=== PATIENT | male | born 1980 | race African-American/Black ===

== ENCOUNTER 2019-02-20 22:57 | Inpatient (IN) | payer MEDICAID ==
[2019-02-20] MEDS ORDERED: Ondansetron 4 MG/2 ML SDV IVPUSH ONE (23:18)
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
[2019-02-20] MEDS ORDERED: Sodium Chloride 0.9% 1,000 ML IV SCH (23:30)
--- NOTE | 2019-02-20 23:46 | CR ---
INDICATION: Abdominal pain, shortness of breath TECHNIQUE: Chest radiograph 2 views COMPARISON: None FINDINGS: Mediastinum: The mediastinum is normal in appearance. The heart silhouette is normal in size and morphology. Lung: Both lungs are unremarkable in appearance. No sign of pleural effusion seen. No pneumothorax is identified. Musculoskeletal: Unremarkable for age. IMPRESSION: 1. No acute cardiopulmonary disease is seen. Dictated by: Kiran Costa MD @ 02/20/2019 23:45:27 (Electronically Signed)
[2019-02-20 23:51] LABS: CHLORIDE,CL 99 mmol/L (98-107); SODIUM,NA 136 mmol/L (136-148)
--- NOTE | 2019-02-21 00:08 | CT ---
INDICATION: Abdominal pain TECHNIQUE: CT Abdomen and pelvis without i.v. contrast. Coronal and sagittal reformats were obtained. COMPARISON: 07/01/2015 FINDINGS: Lower chest: Unremarkable. Liver: In the posterior dome of the liver, there is a stable 1 cm hypodensity. Spleen: Unremarkable. Pancreas: Unremarkable. Gallbladder: Previous cholecystectomy noted without significant intra- or extrahepatic biliary ductal dilatation seen. Kidney: There is a punctate less than 1 mm stone present in the upper pole and lower pole of the right kidney. Adrenal: Unremarkable. Bowel: The previously noted right periumbilical hernia now contains herniated small bowel loops causing high-grade obstruction of the small bowel. A small bowel anastomotic staple line is present in the left flank. The appendix is normal in appearance and size. Vascular: Unremarkable. Lymph: Unremarkable. Peritoneum: Unremarkable. No pneumoperitoneum is seen. No significant ascites is noted. Pelvis: Unremarkable. Soft tissue: Unremarkable. Bone: Severe degenerative disc narrowing of L4-5 is noted without significant interval change. IMPRESSION: 1. The previously noted right periumbilical hernia now contains herniated small bowel loops causing high-grade obstruction of the small bowel. The small bowel proximal to the hernia is dilated measuring up to 4.3 cm. Dictated by Kiran Costa MD @ 02/20/2019 11:57:15 PM Please note that all CT scans at this facility use dose modulation, iterative reconstruction, and/or weight-based dosing when appropriate to reduce radiation dose to as low as reasonably achievable. Dictated by: Kiran Costa MD @ 02/21/2019 00:05:41 (Electronically Signed)
[2019-02-21] MEDS ORDERED: Morphine 4 MG/ML Syringe IVPUSH ONE ×2 (00:21→02:07)
[2019-02-21] MEDS ORDERED: cefOXitin 2 GM in Premix Bag 1 BAG IV ONE (01:44)
[2019-02-21] MEDS: Lactated Ringers 1,000 ML IV SCH ×2 (02:00→17:20)
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
--- NOTE | 2019-02-21 02:26 | PCM.SN ---
- Free Text/Narrative Note: pt seen, chart reviewed; h/p dictated, [id number]; hi grade obstruction w incarcerated hernia, would benefit from timely surgery; pt has abd pain and n/v , and ct read hi grade, proceed with surgery; offered pt 2nd opinion, proceed w xlap, poss bowel resection, or possible ostomy or possible hernia repair, possible w mesh; pt concur and proceed;
[2019-02-21] MEDS ORDERED: Rocuronium 100 MG/10 ML Syringe ONE (03:02)
[2019-02-21] MEDS ORDERED: Propofol 200 MG/20 ML SDV ONE (03:02)
[2019-02-21] MEDS ORDERED: fentaNYL 250 MCG/5 ML SDV ONE (03:02)
[2019-02-21] MEDS ORDERED: Midazolam 1 MG/ML 2 ML SDV ONE (03:02)
[2019-02-21] MEDS ORDERED: Morphine 2 MG/ML Syringe IVPUSH ONE (04:52)
[2019-02-21] MEDS ORDERED: Lidocaine 1% with EPINEPHrine 1:100,000 20 ML MDV ONE (06:28)
[2019-02-21] MEDS ORDERED: Bupivacaine 25%/EPINEPHrine/PF 30 ML ONE (06:28)
[2019-02-21] MEDS ORDERED: cefOXitin 1 GM Vial ONE (07:08)
[2019-02-21] MEDS ORDERED: Ondansetron 4 MG/2 ML SDV ONE (07:24)
[2019-02-21] MEDS ORDERED: Glycopyrrolate 0.2 MG/ML SDV ONE ×2 (07:24→09:36)
[2019-02-21] MEDS ORDERED: Neostigmine Methylsulfate 1 MG/ML 5 ML Syringe ONE (07:24)
[2019-02-21] MEDS ORDERED: HYDROmorphone 2 MG/ML Syringe ONE (08:52)
[2019-02-21] MEDS ORDERED: fentaNYL 100 MCG/2 ML SDV IVPUSH PRN (09:01)
--- NOTE | 2019-02-21 10:42 | PCM.POSTAN ---
POST ANESTHESIA ASSESSMENT - MENTAL STATUS Mental Status: Alert, Oriented - RESPIRATORY Respiratory Status: Respiratory Rate WNL, Airway Patent, O2 Saturation Stable - CARDIOVASCULAR CV Status: Pulse Rate WNL, Blood Pressure Stable - GASTROINTESTINAL GI Status: No Symptoms - PAIN Pain Score: 3 - POST OP HYDRATION Hydration Status: Adequate & Stable - OBSERVATIONS Free Text/Narrative:: The patient tolerated the procedure well. There were no apparent anesthetic complications at this time.
--- NOTE | 2019-02-21 10:51 | PCM.OPNOTE ---
- General Post-Op/Procedure Note Date of Surgery/Procedure: 02/21/19 Operative Procedure(s): 1) ex lap. 2) MARITZA. 3) repair incarcerated incisional hernia w mesh Findings: 1) very hostile abdomen from prior surgery, took long time to get into peritoneum 2) three hernia, a [place] cheese like hernia along midline, and small bowel grew together w hernia sac on the lowest large one, about 4 cm 3) bowels are perfused, no bowel resection or ostomy 4) repair w Bard Dulex 10 X 15 cm op note [id number] Pre Op Diagnosis: hi grade obstruction and incarcerated incisional hernia Post-Op Diagnosis: Same Anesthesia Technique: General ET Tube Primary Surgeon: Heriberto Zuleta Complications: None Condition: Good Free Text/Narrative:: Intake & Output 02/20/19 02/21/19 02/21/19 22:59 06:59 14:59 Intake Total 3100 Output Total 250 Balance 2850
[2019-02-21] MEDS ORDERED: Ondansetron 4 MG/2 ML SDV IVPUSH PRN (11:06)
--- NOTE | 2019-02-21 11:48 | PCM.SN ---
- Free Text/Narrative Note: Pt at risk for post op resp obstruction because of ALMA, snoring, inc neck circ, upper abd surgery, parenteral narcotics I have ordered 48 hr of nc oxygen, and continuous spo2 and etco2 central monitoring post op
[2019-02-21] MEDS: Morphine PF 30 MG/30 ML PCA Vial IV SCH (12:00)
--- NOTE | 2019-02-21 13:45 | OR ---
SURGEON: Heriberto Zuleta MD DATE OF PROCEDURE: 02/21/2019 PREOPERATIVE DIAGNOSES: High-grade small bowel obstruction and incarcerated incisional hernia. POSTOPERATIVE DIAGNOSES: High-grade small bowel obstruction and incarcerated incisional hernia. PROCEDURES PERFORMED: 1. Exploratory laparotomy. 2. Lysis of adhesion. 3. Repair of above hernia with mesh. PRIMARY SURGEON: Heriberto Zuleta MD. COMPLICATIONS: None. FINDINGS: The patient has a [place] cheese hernia along the midline and 3 of them, coalesced to make it into 1 large hernia, and repaired with a 10 x 15 Bard Dulex mesh. DESCRIPTION OF PROCEDURE: The patient was taken to the operating room and placed in a supine position. Upon induction of general endotracheal anesthesia, the patient's abdomen prepped and draped in a sterile fashion. Time-out was being called, the patient identified, procedure identified, antibiotic given. Procedure then started. After assessment of appropriate landmark, using a 15 blade, very generously layer by layer we will go, open up from the prior surgical incision, the midline incision. Encountered the hernia sac and this was the second hernia. The patient altogether found to have 3 hernias, one on the top and which is about 10 mm and with incarcerated omentum and the second one is about 15 mm and also contained omentum. The last one is a little bit off the midline, a little bit to the right, and that hernia opening is about 4 cm and contained small bowel. The hernia has been there for so long that the small bowel and hernia sac grew into 1 piece. The hernias were all delineated from its edge and then coalesced into 1 big hernia and the abdomen is very hostile from prior surgery. It took a tremendous amount of time to get into the peritoneum and once we got there, also found out a lot of bowel attached to the abdominal wall, which was painstakingly taken down bit by bit. Examined the bowel, there was no dilated bowel. The original bowel, small bowel that contained hernia sac, once releasing the abdominal wall was totally decompressed instantly and there were no signs or symptoms of compromise in circulation. After the free hernia and breakdown of the edge to make it into a big hernia, which was measured about 3 x 6 cm, it was decided to put in a 10 x 15 cm Bard Dulex using 0 Prolene and 0 Ethibond. Upon finish, there was found to be no tensioning putting the mesh. Thorough extensive irrigation and 2-0 Vicryl was used to put in some interlock interrupted stitches to approximate the skin, followed by skin staple. This was then followed by appropriate dressing. The patient was awakened, extubated, and transferred to recovery room in hemodynamically stable condition. The patient tolerated the procedure well. There were no intraoperative complications. Dr. Zuleta was present throughout the whole procedure. Prior to closing the peritoneum cavity with a mesh, the sponge count and instrument count were correct. The patient also got another reinforced dose of Mefoxin 1 g iv 6 hrs from 1st dose. Throughout the whole surgery, there was no ostomy and there was no bowel resection performed and also NG tube was inserted for probably expecting a slow wake up for the bowel because of a chronic situation and the bowel obstruction has been there for 3 days. As always, thank you for kind referral. MARY LOU CONNER /[id number] MTDD
[2019-02-21] MEDS ORDERED: Acetaminophen/oxyCODONE 325-5 MG Tab ONE (14:54)
[2019-02-22] MEDS: Lactated Ringers 1,000 ML IV SCH ×3 (01:12→16:34)
[2019-02-22] MEDS: Morphine PF 30 MG/30 ML PCA Vial IV SCH ×2 (01:12→13:59)
[2019-02-22] MEDS: Pantoprazole 40 MG in Sodium Chloride 0.9% 10 ML IVPUSH SCH (08:43)
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
--- NOTE | 2019-02-22 10:25 | PCM.SURGPN ---
- General Info Date of Service: 02/22/19 Functional Status: Reports: Pain Controlled - Review of Systems Gastrointestinal: Reports: No Symptoms (no flatus) - Patient Data Vitals - Most Recent: Last Vital Signs Temp 98.4 F 02/22/19 07:07 Pulse 97 02/22/19 07:07 Resp 19 02/22/19 07:07 BP 119/79 02/22/19 07:07 Pulse Ox 98 02/22/19 07:07 Weight - Most Recent: 303 lb 14.4 oz I&O - Last 24 Hours: Intake & Output 02/21/19 02/22/19 02/22/19 22:59 06:59 14:59 Intake Total 534 1686 Output Total 350 1600 Balance 184 86 Med Orders - Current: Current Medications Lactated Ringer's (Ringers, Lactated) 1,000 mls @ 150 mls/hr IV ASDIRECTED [facility] Last Admin: 02/22/19 07:49 Dose: 125 mls/hr Pantoprazole Sodium 40 mg/ (Sodium Chloride) 10 mls @ 200 mls/hr IVPUSH DAILY [facility] Last Admin: 02/22/19 08:43 Dose: 200 mls/hr Morphine Sulfate (Morphine [employer] Attendant 30 Mg In 30 Ml) 0 mg IV ASDIRECTED BERTHA; Protocol Last Admin: 02/22/19 01:12 Dose: 30 mg Ondansetron HCl (Zofran) 4 mg IVPUSH Q8H PRN PRN Reason: Nausea/Vomiting Discontinued Medications Cefoxitin Sodium (Mefoxin) Confirm Administered Dose 1 gm .ROUTE .STK-MED ONE Stop: 02/21/19 07:09 Fentanyl (Sublimaze) Confirm Administered Dose 250 mcg .ROUTE .STK-MED ONE Stop: 02/21/19 03:03 Fentanyl (Sublimaze) 50 mcg IVPUSH .Q5MIN PRN PRN Reason: Pain Glycopyrrolate (Robinul) Confirm Administered Dose 0.4 mg .ROUTE .STK-MED ONE Stop: 02/21/19 07:25 Glycopyrrolate (Robinul) Confirm Administered Dose 0.2 mg .ROUTE .STK-MED ONE Stop: 02/21/19 09:37 Hydromorphone HCl (Dilaudid) Confirm Administered Dose 2 mg .ROUTE .STK-MED ONE Stop: 02/21/19 08:53 Sodium Chloride (Normal Saline) 1,000 mls @ 999 mls/hr IV ASDIRECTED [facility] Last Admin: 02/20/19 23:27 Dose: 999 mls/hr Cefoxitin Sodium 2 gm/ Premix 50 mls @ 100 mls/hr IV ONETIME ONE Stop: 02/21/19 02:13 Last Admin: 02/21/19 02:07 Dose: 100 mls/hr Lactated Ringer's (Ringers, Lactated) 1,000 mls @ 150 mls/hr IV ASDIRECTED [facility] Last Admin: 02/22/19 01:12 Dose: 150 mls/hr Lidocaine HCl (Xylocaine-Mpf 1%) Confirm Administered Dose 5 mls @ as directed .ROUTE .STK-MED ONE Stop: 02/21/19 03:03 Bupivacaine HCl/Epinephrine Bitart (Sensorc Mpf 0.25%-Epi 1:[id number]) Confirm Administered Dose 30 mls @ as directed .ROUTE .STK-MED ONE Stop: 02/21/19 06:29 Acetaminophen (Ofirmev) Confirm Administered Dose 100 mls @ as directed IV .STK- MED ONE Stop: 02/21/19 07:28 Lidocaine/Epinephrine (Xylocaine 1% With Epinephrine 1:100,000) Confirm Administered Dose 20 ml .ROUTE .STK-MED ONE Stop: 02/21/19 06:29 Midazolam HCl (Versed 1 Mg/Ml) Confirm Administered Dose 2 mg .ROUTE .STK-MED ONE Stop: 02/21/19 03:03 Morphine Sulfate (Morphine) 4 mg IVPUSH ONETIME ONE Stop: 02/21/19 00:22 Last Admin: 02/21/19 00:27 Dose: 4 mg Morphine Sulfate (Morphine) 3 mg IVPUSH ONETIME ONE Stop: 02/21/19 02:08 Last Admin: 02/21/19 02:21 Dose: 3 mg Morphine Sulfate (Morphine) 2 mg IVPUSH ONETIME ONE Stop: 02/21/19 04:53 Last Admin: 02/21/19 04:56 Dose: 2 mg Neostigmine Methylsulfate (Neostigmine) Confirm Administered Dose 5 mg .ROUTE .STK-MED ONE Stop: 02/21/19 07:25 Ondansetron HCl (Zofran) 4 mg IVPUSH ONETIME ONE Stop: 02/20/19 23:19 Last Admin: 02/20/19 23:27 Dose: 4 mg Ondansetron HCl (Zofran) Confirm Administered Dose 4 mg .ROUTE .STK-MED ONE Stop: 02/21/19 07:25 Oxycodone/Acetaminophen (Percocet 325-5 Mg) Confirm Administered Dose 1 tab .ROUTE .STK-MED ONE Stop: 02/21/19 14:55 Last Admin: 02/21/19 15:41 Dose: Not Given Propofol (Diprivan 20 Ml) Confirm Administered Dose 200 mg .ROUTE .STK-MED ONE Stop: 02/21/19 03:03 Rocuronium Java (Zemuron) Confirm Administered Dose 100 mg .ROUTE .STK-MED ONE Stop: 02/21/19 03:03 - Exam GI/Abdominal Exam: Soft, No Distention (on abd binder, drsg cdi) - Problem List Review Problem List Initiated/Reviewed/Updated: Yes - My Orders Last 24 Hours: Active Orders 24 hr Category Date Time Status Capnography Monitoring [RT End Tidal CO2 Monitoring] [ Care 02/21/19 11:04 Active RC] ASDIRECTED Communication Order [RC] ROUTINE Care 02/21/19 11:02 Active Communication Order [RC] STAT Care 02/21/19 11:07 Active Incentive Spirometry [RT Incentive Spirometry] [] Care 02/21/19 11:11 Active Q1HWA NG [Gastrointestinal Tube Mgmt] [] ASDIRECTED Care 02/21/19 11:01 Active Notify Provider [] PRN Care 02/21/19 11:07 Active Overnight Pulse Oximetry [] Click to Edit Care 02/21/19 11:01 Active Oxygen Therapy Adult [Oxygen Therapy] [] ASDIRECTED Care 02/21/19 11:02 Active Pulse Oximetry [] CONTINUOUS Care 02/21/19 11:07 Active Remove Rivers Catheter [Urinary Catheter Removal] [] Care 02/22/19 09:17 Active Per Unit Routine NPO [Nothing Per Oral Diet] [DIET] Diet 02/21/19 Dinner Active Lactated Ringers [Ringers, Lactated] 1,000 ml Med 02/21/19 11:15 Active IV ASDIRECTED Morphine PF [Morphine MEAT WASHER 30 MG in 30 ML] Med 02/21/19 11:15 Active See Protocol IV ASDIRECTED Ondansetron [Zofran] Med 02/21/19 11:06 Active 4 mg IVPUSH Q8H PRN Pantoprazole [ProTONIX IV] 40 mg Med 02/22/19 09:00 Active Sodium Chloride 0.9% [Normal Saline] 10 ml IVPUSH DAILY Medication Discontinuation Instructions [OM.PC] Stat Ot 02/21/19 11:07 Ordered Pulse Oximetry Continuous Monitoring [OM.PC] Routine Oth 02/21/19 11:00 Ordered Medication Orders Lactated Ringer's (Ringers, Lactated) 1,000 mls @ 150 mls/hr IV ASDIRECTED BERTHA Last Admin: 02/22/19 07:49 Dose: 125 mls/hr Pantoprazole Sodium 40 mg/ (Sodium Chloride) 10 mls @ 200 mls/hr IVPUSH DAILY [facility] Last Admin: 02/22/19 08:43 Dose: 200 mls/hr Morphine Sulfate (Morphine [employer] Attendant 30 Mg In 30 Ml) 0 mg IV ASDIRECTED [facility]; Protocol Last Admin: 02/22/19 01:12 Dose: 30 mg Admin: 02/21/19 12:00 Dose: 30 mg Ondansetron HCl (Zofran) 4 mg IVPUSH Q8H PRN PRN Reason: Nausea/Vomiting - Assessment Assessment (Free Text/Narrative):: pod #1 xlap/incarcerated incisional hernia repair, doing well; dc rivers, encourage ambulation; flatus then feed, home - Plan Plan (Free Text/Narrative):: pod #1 xlap/incarcerated incisional hernia repair, doing well; dc rivers, encourage ambulation; flatus then feed, home
[2019-02-23] MEDS: Morphine PF 30 MG/30 ML PCA Vial IV SCH ×2 (02:11→17:18)
[2019-02-23] MEDS: Lactated Ringers 1,000 ML IV SCH ×3 (02:12→18:50)
[2019-02-23] MEDS: Pantoprazole 40 MG in Sodium Chloride 0.9% 10 ML IVPUSH SCH (08:39)
[2019-02-23 09:34] LABS: CHLORIDE,CL 99 mmol/L (98-107); SODIUM,NA 134 mmol/L (136-148)
[2019-02-23] MEDS: ceFAZolin 1 GM in Premix Bag 1 BAG IV SCH ×2 (10:25→17:23)
[2019-02-24] MEDS: ceFAZolin 1 GM in Premix Bag 1 BAG IV SCH ×2 (02:00→09:33)
[2019-02-24] MEDS: Lactated Ringers 1,000 ML IV SCH (02:00)
[2019-02-24] MEDS ORDERED: Acetaminophen/oxyCODONE 325-5 MG Tab PO PRN (02:51)
[2019-02-24 05:56] LABS: CHLORIDE,CL 101 mmol/L (98-107); SODIUM,NA 136 mmol/L (136-148)
[2019-02-24] MEDS ORDERED: Levofloxacin/Dextrose 5%-Water 750 MG in Premix Bag 1 BAG IV SCH (08:45)
[2019-02-24] MEDS: Pantoprazole 40 MG in Sodium Chloride 0.9% 10 ML IVPUSH SCH (09:34)
[2019-02-24 11:52] VITALS: BP 148/63
--- NOTE | 2019-02-24 13:55 | PCM.SN ---
- Free Text/Narrative Note: dc summary [id number]
--- NOTE | 2019-02-27 09:07 | DISCH ---
DATE OF DISCHARGE: 02/24/2019 PRIMARY CARE PHYSICIAN: Jean Pierre PCP DIAGNOSIS: Incarcerated incisional hernia and small bowel obstruction. Please refer to the admission history and physical for detail. In summary, the patient presented to emergency room with 3-day history of bowel obstruction, abdominal pain. CAT scan workup showed that the patient has incarcerated incisional hernia. The patient was taken to operating room by myself. HOSPITAL COURSE: The patient was taken to the operating room, status post lysis of adhesion, exploratory laparotomy and repair of incarcerated incisional hernia with mass by myself. Postop, the patient returned to the floor, and 2 days later, bowel function returned. He had a bowel movement, well-formed stool, and the patient also tolerated p.o. diet full liquid. The patient was discharged. Upon discharge, the patient is able to ambulate by self and void and hemodynamically stable and vital signs stable. Surgical wound is clean, dry, and intact. The patient was discharged with pain medication and antibiotic Keflex, and follow up with me in 1 to 2 weeks. MARY LOU CONNER /[id number]
== END 2019-02-24 14:40 | disposition home or self-care (01) | DRG 355 ==
LOC: MW.ED 22:57 → MW.SDS 02-21 01:34 → MW.ICU 02-21 10:04 → MW.MS 02-21 11:11
PROVIDERS: ADMIT Surgery; ATTEND Surgery
PROC: 0WUF0JZ Supplement Abdominal Wall with Synthetic Substitute, Open Approach (ICD-10-PCS; principal; 2019-02-21)
DX: K43.0 Incisional hernia with obstruction, without gangrene (principal); Z90.49 Acquired absence of other specified parts of digestive tract
CPT/HCPCS: 36415; 71046; 71046-26; 74176; 74176-26; 80048; 80053; 81001; 83690; 85025; 93005; 96361; 96365; 96375; 96376; 99285-25; A4217; C1781; C9113; J0131; J0690; J0694; J1170; J1956; J2001; J2250; J2270; J2274; J2405; J2704; J3010; J3490; J7040; J7050; J7120

== ENCOUNTER 2019-04-18 14:08 | Emergency (ER) | payer SELFPAY ==
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
[2019-04-18 15:01] LABS: CHLORIDE,CL 104 mmol/L (98-107); SODIUM,NA 140 mmol/L (136-148)
[2019-04-18 15:37] VITALS: BP 134/92
== END 2019-04-18 15:37 | disposition home or self-care (01) ==
LOC: MW.ED 14:08
DX: F15.10 Other stimulant abuse, uncomplicated (principal); Z90.49 Acquired absence of other specified parts of digestive tract
CPT/HCPCS: 36415; 80048; 80305-QW; 81001; 85025; 99283

== ENCOUNTER 2019-04-19 10:31 | Emergency (ER) | payer MEDICAID, OTHER ==
[2019-04-19 10:48] VITALS: BP 143/88
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
== END 2019-04-19 11:15 | disposition home or self-care (01) ==
LOC: MW.ED 10:31
DX: Z02.89 Encounter for other administrative examinations (principal)
CPT/HCPCS: 99282

== ENCOUNTER 2019-04-19 19:11 | Emergency (ER) | payer SELFPAY ==
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
[2019-04-19 20:41] LABS: ACETAMINOPHEN <2.0 ug/mL
[2019-04-19 20:50] LABS: CHLORIDE,CL 107 mmol/L (98-107); SODIUM,NA 142 mmol/L (136-148)
[2019-04-19 22:13] VITALS: BP 110/70
== END 2019-04-19 22:05 ==
LOC: MW.ED 19:11
DX: Z02.89 Encounter for other administrative examinations (principal)
CPT/HCPCS: 36415; 80053; 80305; 81001; 83735; 84443; 85025; 93005; 99285; G0480